=== PATIENT | male | born 1950 | race Caucasian/White ===

== ENCOUNTER 2024-04-19 12:30 | Emergency (ER) | payer MEDICARE, OTHER, SELFPAY ==
[2024-04-19 12:34] VITALS: BP 126/86
[2024-04-19 12:50] VITALS: BP 145/85; BMI 25.9
--- NOTE | 2024-04-19 13:39 | ED.GENMED ---
History of Present Illness
General
Chief Complaint: Crisis Evaluation
Time Seen by Provider: 04/19/24 12:58
History of Present Illness
History of Present Illness:
73-year-old male with history of mild cognitive impairment presents to the emergency department from home with his for evaluation of increasing paranoia and suicidal ideation. Patient is willing to sign himself in for inpatient treatment. He
denies any acute complaints to me at this time
Review of Systems
Review of Systems
Allergies reviewed?: Yes
All Other Systems: ROS reviewed and negative except as documented in HPI and ROS
Phy Exam
Physical Exam
Physical Exam:
GEN: Well appearing, NAD, WDWN
HEENT: Oral mucosa moist, no scleral icterus
Cardiac: Regular rate
Lung: No respiratory distress, no tachypnea
MSK: No gross deformity or injuries
Skin: Good color, no pallor or jaundice, no rashes
Neuro: AO x3, moves all extremities freely
Psych: Calm, cooperative
Course
Orders/Labs/Results
Orders:
Orders
04/19/24 12:35
1:1 Observation - Suicide/ Violent Behavior As Directed
04/19/24 12:39
Crisis Consult Urgent
Reason for Consult: SI
04/19/24 13:39
Urinalysis Reflex To Culture Urgent
Date Specimen was Collected: 04/19/24
Time Specimen was Collected: 13:44
04/19/24 13:49
Complete Blood Count/With Diff Urgent
Comprehensive Metabolic Panel Urgent
04/19/24 16:41
COVID-19 Antigen Urgent
Source: Nasal Swab
04/19/24 16:43
Urine Drug Abuse Screen Urgent
Date Specimen was Collected: 04/19/24
Time Specimen was Collected: 13:44
Abnormal Lab Results
04/19/24
13:49
RBC 4.35 L 10^6/uL
(4.70-6.10)
MCH 32.4 H pg
(27.0-31.0)
Absolute Monos (auto) 0.7 H 10^3/uL
(0.1-0.6)
Lymphocytes % 17.0 L %
(20.5-51.1)
Carbon Dioxide 36 H mmol/L
(22-30)
BUN 34 H mg/dl
(9-20)
Glucose 102 H mg/dl
(70-99)
Total Protein 6.1 L g/dl
(6.3-8.2)
04/19/24 13:49
04/19/24 13:49
Vital Signs
Initial and Last Documented VS:
Initial Vital Signs
Temp Pulse Resp BP Pulse Ox
98.7 F 65 18 126/86 98
04/19/24 12:34 04/19/24 12:34 04/19/24 12:34 04/19/24 12:34 04/19/24 12:34
Last Documented Vital Signs
Temp Pulse Resp BP Pulse Ox
98.5 F 76 22 145/85 99
04/19/24 12:50 04/19/24 12:50 04/19/24 12:50 04/19/24 12:50 04/19/24 12:50
MDM/Problems Addressed
MDM/Problems Addressed:
Patient seen by crisis and inpatient voluntary admission was signed, medically cleared for psychiatric admission, discharged to the care of his to transport him there
*Critical Care Note
Total Time (30-74mins, 75-104mins- exclusive of procedures): Not Applicable
ED Attending Note
-
Portions of this chart may have been created with voice recognition software.� Occasional wrong word or��sound alike� substitutions may have occurred due to the inherent limitations of voice recognition software.
Discharge Plan
Departure
Patient Disposition: Psych Facility
Date of Disposition: 04/19/24
Time of Disposition: 15:01
Discharge Problem:
Suicidal ideation
Prescriptions:
No Action
latanoprost 0.005 % Drops
1 drp ophthalmic (eye) HS
atorvastatin [Lipitor] 40 mg Tablet
40 mg PO DAILY
donepezil 10 mg Tablet
10 mg PO HS
sildenafil 100 mg Tablet
100 mg PO DAILYPRN PRN (Reason: ed)
lisinopril 40 mg Tablet
40 mg PO DAILY
brimonidine-timolol [Combigan] 0.2-0.5 % Drops
1 drp BOTH EYES BID
Activity Restrictions/Additional Instructions:
Rory Enrique is medically cleared for psychiatric admission
Interventions
Interventions:
*Risk Screen - Suicide Last Done: 04/19/24 12:34
*General Assessment Last Done: 04/19/24 12:34
*Neglect/Abuse Screening Last Done: 04/19/24 12:34
ED- Fall Risk Assessment Last Done: 04/19/24 12:50
*ED COVID-19 Vaccine History Last Done: 04/19/24 12:50
*Nursing Disposition Last Done: 04/19/24 17:46
ED-Psychological Assessment Last Done: 04/19/24 12:50
Discharge Date and Time
Print Language: ANGOLAN
[2024-04-19 13:57] LABS: % Basophils 0.5 % (0-2); % Eosinophils 2.3 % (0-6); % Immature Granulocytes 0.5 % (0-0.5); % Monocytes 8.7 % (1.7-9.3); Absolute Eosinophils 0.2 10^3/uL (0-0.7); Absolute Lymphocytes 1.3 10^3/uL (1.2-3.4); Absolute Monocytes 0.7 10^3/uL (0.1-0.6); Absolute Neutrophils 5.5 10^3/uL (1.4-6.5); Hematocrit 40.6 % (39.0-52.0); Hemoglobin 14.1 g/dL (13.0-18.0); Mean Corp Hgb Conc. 34.7 g/dL (33.0-37.0); Mean Corpuscular Hgb 32.4 pg (27.0-31.0); Mean Corpuscular Volume 93.3 fL (80.0-94.0); Mean Platelet Volume 9.1 fL (7.4-10.4); Nucleated Red Blood Cells % 0 % (-); Platelet Count 268 10^3/uL (130-400); Red Blood Cell Count 4.35 10^6/uL (4.70-6.10); Red Cell Dist. Width 12.8 % (11.5-14.5); White Blood Cell Count 7.7 10^3/uL (4.8-10.8)
[2024-04-19 14:35] LABS: ALT (SGPT) 29 U/L (0-50); AST (SGOT) 27 U/L (17-59); Albumin 3.8 g/dl (3.5-5.0); Alkaline Phosphatase 54 U/L (38-126); Blood Urea Nitrogen 34 mg/dl (9-20); Calcium 9.7 mg/dl (8.4-10.2); Carbon Dioxide 36 mmol/L (22-30); Chloride 99 mmol/L (98-107); Estimated Creatinine Clearance 66 ml/min; Glucose 102 mg/dl (70-99); Potassium 4.4 mmol/L (3.5-5.1); Sodium 139 mmol/L (135-145); Total Protein 6.1 g/dl (6.3-8.2); eGFR > 60.00
[2024-04-19 17:16] LABS: COVID-19 Antigen Negative (Negative)
== END 2024-04-19 17:46 ==
LOC: EMR 12:30
PROVIDERS: Physician Assistant; EMERGENCY PHYSICIAN Emergency Medicine
DX: F43.20 Adjustment disorder, unspecified (principal); R45.851 Suicidal ideations
CPT/HCPCS: 99285; 80053; 85025; 87811